=== PATIENT | male | born 1985 | race Caucasian/White ===

== ENCOUNTER 2019-08-07 15:02 | Emergency (ER) | payer BC, SELFPAY ==
--- NOTE | 2019-08-07 15:14 | ED.GENADULT ---
HPI - General Adult General Chief complaint: Upper Respiratory Infection Stated complaint: FEVER/HEADACHE/BODY ACHES/COUGH Time Seen by Provider: 08/07/19 15:41 Source: patient and RN notes reviewed Mode of arrival: ambulatory Limitations: no limitations History of Present Illness HPI narrative: This is a 34 years old male presented office for evaluation of head cold for 5-day. Symptoms include sinus congestion, cough, sore throat, and feeling achy. He said that his fever did not get high until last night. He has been alternate DayQuil and NyQuil for his symptoms. He smokes half a pack a day. However he has not been smoking since he has the illness. He did receive influenza vaccine for this season. Related Data Home Medications Medication Instructions Recorded Confirmed citalopram 20 mg PO DAILY 08/07/19 08/07/19 pantoprazole 20 mg PO QAM 08/07/19 08/07/19 Allergies Allergy/AdvReac Type Severity Reaction Status Date / Time No Known Allergies Allergy Verified 08/07/19 15:37 Review of Systems Review of Systems: Narrative: CONSTITUTIONAL: Reports fever, chills, sweats. ENT: Reports rhinorrhea, congestion, sore throat. Denies otalgia. CARDIOVASCULAR: Denies chest pain RESPIRATORY: Denies dyspnea, wheezing. Reports cough GASTROINTESTINAL: Denies abdominal pain, nausea, vomiting, diarrhea. GENITOURINARY: Denies urinary symptoms or discharge SKIN: Denies rash MUSCULOSKELETAL: Denies acute back pain NEUROLOGIC: Denies lightheaded PMFSH Social History Social History (Updated 08/07/19 @ 15:49 by VENKAT Carreno) Smoking status: Current every day smoker Comments At time of signature, I agree with nursing past medical, surgical, social and family history. There is no relevant family history pertinent to the presenting complaint. Exam Narrative: Exam Narrative: GENERAL: This is a well-nourished, well-developed patient, ill apparent but not in acute distress. EYES: Sclera clear/white. Vision is grossly intact. EARS: External ears normal, auditory canals clear and without drainage, TMs normal without perforation. Hearing grossly intact. NOSE: External nose normal with no obvious nasal discharge, nares edematous and erythema. THROAT: Mucous membranes moist, posterior pharynx clear. NECK: Neck supple, non-tender without lymphadenopathy, masses or thyromegaly. CARDIOVASCULAR: Regular rate and rhythm without murmurs, gallops, or rubs. RESPIRATORY: Clear to auscultation. Breath sounds equal bilaterally. No wheezes, rales, or rhonchi. GASTROINTESTINAL: Abdomen soft, non-tender, nondistended. Bowel sounds are active. No hepato-splenomegaly, or palpable masses. No guarding. SKIN: warm, intact with no suspicious lesions or rash, good texture and turgor. NEURO: awake, alert, and oriented to person, place and time. There were no obvious focal neurologic abnormalities. Steady gait Eddington Coma Scale Eye Opening: Spontaneous 4 Edd[place] Coma Scale Motor: Obeys Commands 6 [place]aye Coma Scale Verbal: Oriented 5 Medical Decision Making MDM Narrative Medical decision making narrative: Discharge instructions reviewed with patient, as well as provided in writing per nursing staff. The instructions also include specific and strict return/GO TO THE ER as well as f/u information. All questions have been answered, and the patient deny any further questions with discharge and discharge plan. Differential Diagnosis Differential Diagnosis: pneumonia, Allergic Rhinitis, Upper respiratory cough syndrome, Pharyngitis, Sinusitis, Bronchitis, otitis media, viral URI, Asthma/reactive airway disease, influenza Lab Data Lab results reviewed: Yes I reviewed the patient's lab results. Critical Care Time Critical Care Time Critical Care Time: No Discharge Plan Discharge Clinical Impression: Viral URI with cough Patient Disposition: Home, Self-Care Condition: Stable Instructions: Cold Symptoms (ED) Additional Instructions:
[2019-08-07 15:23] VITALS: BP 106/73; PULSE 100; RESP 16; TEMP 39.2; O2SAT 96
== END 2019-08-07 16:04 | disposition home or self-care (01) ==
PROVIDERS: Emergency Provider Nurse Practitioner; PCP Family Medicine
DX: J06.9 Acute upper respiratory infection, unspecified (principal); R05 Cough; F17.200 Nicotine dependence, unspecified, uncomplicated; K21.9 Gastro-esophageal reflux disease without esophagitis
CPT/HCPCS: 87804; 99203; G0463

== ENCOUNTER 2023-05-12 00:45 | Day surgery (SDC) | payer BC, SELFPAY ==
[2023-04-22 10:19] VITALS: BMI 27.3
--- NOTE | 2023-04-29 12:00 | SUR.PREOP ---
Patient called regarding upcoming procedure. Reviewed preop instructions, appointment times, and procedure prep.
--- NOTE | 2023-05-08 14:49 | SUR.PREOP ---
Patient called regarding upcoming procedure. Reviewed preop instructions, appointment times, and procedure prep.
[2023-05-12 13:20] VITALS: BP 126/65; PULSE 58; RESP 16; TEMP 36.1; O2SAT 98; BMI 27.1
[2023-05-12] MEDS: LACTATED RINGERS 1,000 ML 150 ML IV CONT (13:28)
--- NOTE | 2023-05-12 13:55 | PM.HPGS ---
History of Present Illness History of Present Illness Consent: Risks, benefits, and alternatives have been discussed and questions answered. Patient agrees to proceed with procedure. Chief complaint: GERD, other chest pain Narrative: Sacha Francisco is a 37 year old male with gerd on protonix, also non-cardiac chest pain Review of Systems Constitutional: Constitutional: Denies headache(s) and Denies weakness Eyes: Eyes: Denies blurry vision ENT: Reports Normal hearing present, Denies headache(s) and Denies neck pain Cardiovascular: Cardiovascular: Denies chest pain and Denies dyspnea Respiratory: Respiratory: Denies dyspnea Gastrointestinal: Gastrointestinal: Reports no additional gastrointestinal complaints Genitourinary: Genitourinary: Denies dysuria Musculoskeletal: Musculoskeletal: Denies neck pain Integumentary/Breasts: Skin/Breast: Denies dry skin Neurologic: Reports Normal hearing present, Denies headache(s) and Denies weakness Psychiatric: Psychiatric: Denies anxiety Endocrine: Endocrine: Denies change in body appearance Hematologic/Lymphatic: Hematologic/Lymphatic: Denies easy bleeding Allergic/Immunologic: Allergic/Immunologic: Denies urticaria PMFSH Past Medical History Medical History (Updated 04/08/23 @ 14:23 by ROSEANNE Juarez) Anxiety Atypical chest pain BMI 28.0-28.9,adult Gastroesophageal reflux disease Tobacco use Vitamin D deficiency Family History Family History (Updated 04/08/23 @ 13:38 by EILEEN Gama) Father , Onset Age: 40 MVC Mother Diabetes mellitus Sibling No problems noted. Social History Social History (Updated 04/08/23 @ 13:39 by EILEEN Gama) Smoking packs per day: 0.75 Smoking cigarettes per day: 15.0 Years smoked: 20 Smoking pack-years: 15.00 Smoking status: Current every day smoker Tobacco type: cigarettes Second hand tobacco smoke exposure: Yes Alcohol intake: current Alcohol use details: rarely Substance use: never Substance use type: does not use Lack of Transportation: No Lack of Food: Never True Current Housing: I Have Housing Concerned About Future Housing: No Difficulty Paying Gas/Electric Bills: No Difficulty Paying for Meds: No Currently Unemployed: No Education: High School Diploma/GED Living arrangements: with family Occupation/Education: occupation 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 Gender identity (if verbalized by the patient): Male Spiritual care concerns: No Meds Home Medications and Allergies Home Medications Medication Instructions Recorded Confirmed Type citalopram 20 mg tablet 20 mg PO DAILY 08/07/19 05/12/23 History pantoprazole 20 mg tablet,delayed 20 mg PO QAM 04/08/23 05/12/23 History release lorazepam 1 mg tablet 1 mg PO TID PRN Anxiety 04/22/23 05/12/23 History Allergies Allergy/AdvReac Type Severity Reaction Status Date / Time No Known Allergies Allergy Verified 05/12/23 13:17 Vital Signs Vital Signs - 24 hr 05/12/23 13:20 Temperature 96.9 F L Pulse Rate 58 L Respiratory Rate 16 Blood Pressure 126/65 Pulse Oximetry 98 Oxygen Delivery Room Air Exam Const: General: comfortable and no acute distress HENMT: Face/Nose/Sinus: Normal nares present Eyes: General: appearance normal, both eyes and all related structures Neck: Neck: no JVD Resp: Auscultation: clear to auscultation bilaterally Cardio: Rate: regular rate Rhythm: regular rhythm GI: Inspection: non-distended GI Palp: Yes Soft to palpation Skin: General skin exam: normal color Neuro: General: gait normal Speech: normal speech Extrem: General: normal to inspection Psych: Mental Status: mental status grossly normal Assessment and Plan Assessment and plan (1) Atypical chest pain: Code(s): R07.89 - Other chest pain Status: Acute Assessment and Plan: egd with bx (2)
--- NOTE | 2023-05-12 13:57 | WPDANESEPPF ---
Anes - Initial Pre Proc Eval Procedure: Operation Date: 05/12/23 14:30 Proposed Procedures p Esophagogastroduodenoscopy - Regan Harris MD Date/Time: 05/12/23 13:57 Surgeon: Regan Harris MD Pre Op Diagnosis: GERD, other chest pain Patient Data Age: 37 Gender: M Height: 1.75 m Weight: 83.3 kg Last Vital Signs Temp 96.9 F L 05/12/23 13:20 Pulse 58 L 05/12/23 13:20 Resp 16 05/12/23 13:20 BP 126/65 05/12/23 13:20 Pulse Ox 98 05/12/23 13:20 O2 Del Method Room Air 05/12/23 13:20 Allergies Allergy/AdvReac Type Severity Reaction Status Date / Time No Known Allergies Allergy Verified 05/12/23 13:17 Home Medications Medication Instructions Recorded Confirmed Type citalopram 20 mg tablet 20 mg PO DAILY 08/07/19 05/12/23 History pantoprazole 20 mg tablet,delayed 20 mg PO QAM 04/08/23 05/12/23 History release lorazepam 1 mg tablet 1 mg PO TID PRN Anxiety 04/22/23 05/12/23 History Patient hx anesthesia problems: none Family hx anesthesia problems: none Results Review: All pre-operative results and documents have been reviewed as part of the pre-operative evaluation. [facility] Past Medical History Medical History (Updated 04/08/23 @ 14:23 by Beverley Oneal APN-C) Anxiety Atypical chest pain BMI 28.0-28.9,adult Gastroesophageal reflux disease Tobacco use Vitamin D deficiency Family History Family History (Updated 04/08/23 @ 13:38 by EILEEN Gama) Father , Onset Age: 40 MVC Mother Diabetes mellitus Sibling No problems noted. Social History Social History (Updated 04/08/23 @ 13:39 by EILEEN Gama) Smoking packs per day: 0.75 Smoking cigarettes per day: 15.0 Years smoked: 20 Smoking pack-years: 15.00 Smoking status: Current every day smoker Tobacco type: cigarettes Second hand tobacco smoke exposure: Yes Alcohol intake: current Alcohol use details: rarely Substance use: never Substance use type: does not use Lack of Transportation: No Lack of Food: Never True Current Housing: I Have Housing Concerned About Future Housing: No Difficulty Paying Gas/Electric Bills: No Difficulty Paying for Meds: No Currently Unemployed: No Education: High School Diploma/GED Living arrangements: with family Occupation/Education: occupation 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 Informed Consent: The patient's anesthetic plan and its attendant risks and benefits were discussed with the patient/family/POA. Questions were solicited and answers provided to the satisfaction of the patient/family/POA.
[2023-05-12 14:12] VITALS: BP 103/62; PULSE 60; RESP 22; O2SAT 96
[2023-05-12 14:22] VITALS: BP 114/70; PULSE 54; RESP 18; O2SAT 97
[2023-05-12 14:32] VITALS: BP 113/76; PULSE 52; RESP 18; O2SAT 97
== END 2023-05-12 14:43 | disposition home or self-care (01) ==
PROVIDERS: PCP Family Medicine; Visit Provider Internal Medicine Gastroenterology
PROC: 0DJ08ZZ Inspection of Upper Intestinal Tract, Via Natural or Artificial Opening Endoscopic (ICD-10-PCS; CPT 43235; principal; 2023-05-12 14:30)
DX: R07.89 Other chest pain (principal); K21.9 Gastro-esophageal reflux disease without esophagitis; F41.9 Anxiety disorder, unspecified; E55.9 Vitamin D deficiency, unspecified; F17.210 Nicotine dependence, cigarettes, uncomplicated; K44.9 Diaphragmatic hernia without obstruction or gangrene
CPT/HCPCS: 43239; 88305; J2001; J2704; J7120